=== PATIENT | male | born 1985 | race Caucasian/White ===

== ENCOUNTER 2020-06-27 18:07 | Emergency (ER) | payer OTHER, SELFPAY ==
[2020-06-27 18:18] VITALS: BP 129/82; PULSE 85; RESP 20; TEMP 36.9; O2SAT 99
--- NOTE | 2020-06-27 18:40 | ED.MALEGU ---
HPI - Male Genitourinary General Chief complaint: Urogenital-Male Stated complaint: Urogenital-male Time Seen by Provider: 06/27/20 18:40 Source: patient and RN notes reviewed History of Present Illness HPI Narrative: Patient is a 34-year-old male who presents the urgent care with complaints of a possible UTI with a 5-day history of urgency and burning with urination. Patient states that he also has urinary frequency. Patient denies of any flank pain, nausea, vomiting. Denies of any fever or abdominal pain. Patient has not taken anything for his symptoms. Patient does admit to high increase of caffeine. Denies of any past chronic urinary tract infections but states he does have a history of urethritis. No other acute complaints. No acute distress noted. Patient read the plan of care. Related Data Home Medications Medication Instructions Recorded Confirmed hydrochlorothiazide 12.5 mg PO DAILY 06/27/20 06/27/20 lisinopril 10 mg PO DAILY 06/27/20 06/27/20 Allergies Allergy/AdvReac Type Severity Reaction Status Date / Time No Known Allergies Allergy Verified 06/27/20 18:28 Review of Systems Review of Systems: Narrative: CONSTITUTIONAL: Denies fever, chills, or sweats. EYES: Denies visual changes, redness, or discharge. ENT: Denies rhinorrhea, congestion, sore throat, or otalgia. CARDIOVASCULAR: Denies chest pain, palpitations, or edema. RESPIRATORY: Denies cough or dyspnea. GASTROINTESTINAL: Denies abdominal pain, nausea, vomiting, or diarrhea. GENITOURINARY: Reports of dysuria, urgency, frequency SKIN: Denies rash or itching. MUSCULOSKELETAL: Denies back pain, joint pain, or myalgia. NEUROLOGIC: Denies headache, numbness, or weakness. All other systems reviewed are negative, except as documented in HPI. PMFSH Comments At the time of my signature, I reviewed and agree with the nursing past medical, surgical, social, and family history. There is no relevant family history pertinent to the patient complaint. Exam Narrative: Exam Narrative: GENERAL: This is a well-nourished, well-developed patient, in no apparent distress. HEAD: normocephalic, atraumatic. EYES: PERRL. Sclera clear/white. Vision is grossly intact. EARS: External ears normal NOSE: External nose normal with no obvious nasal discharge, nares without redness, no rhinorrhea. THROAT: Mucous membranes moist NECK: Neck supple GASTROINTESTINAL: Abdomen soft, non-tender, nondistended. SKIN: warm, intact with no suspicious lesions or rash, good texture and turgor. NEURO: awake, alert, and oriented to person, place and time. There were no obvious focal neurologic abnormalities. EXTREMITIES: No clubbing, cyanosis, or edema. BACK: Negative bilateral CVA tenderness Course Vital Signs Vital signs: Vital Signs Temperature 98.4 F 06/27/20 18:18 Pulse Rate 85 06/27/20 18:18 Respiratory Rate 20 06/27/20 18:18 Blood Pressure 129/82 06/27/20 18:18 Pulse Oximetry 99 06/27/20 18:18 Temperature 98.4 F 06/27/20 18:18 Pulse Rate 85 06/27/20 18:18 Respiratory Rate 20 06/27/20 18:18 Blood Pressure 129/82 06/27/20 18:18 Pulse Oximetry 99 06/27/20 18:18 Reviewed MDM - Male Genitourinary MDM Narrative Medical decision making narrative: Reviewed lab results with the patient. He is aware that urine analysis does show slight amount of bacteria in the urine. Advised the patient to start antibiotic regimen and complete as directed, unless culture states otherwise. We will culture the urine and call if medication needs to be changed based on culture results. However, we do not call for negatives and you should check on your urine results within 72 hours to make sure the culture does not fact need antibiotic treatment. ([id number])If the antibiotics are not necessary, stop the medication and follow-up with your PCP if symptoms continue. Make sure to eat and drink with the medication. Increase water intake and avoid sugary and caffeinated dr
== END 2020-06-27 19:06 | disposition home or self-care (01) ==
PROVIDERS: Emergency Provider Nurse Practitioner Family
DX: N39.0 Urinary tract infection, site not specified (principal); I10 Essential (primary) hypertension
CPT/HCPCS: 81003; 87086; 99213; G0463